=== PATIENT | male | born 1960 | race Caucasian/White ===

== ENCOUNTER 2025-04-26 22:55 | Inpatient (IN) | payer OTHER ==
[~2025-04-26] VITALS: Ht 177.8 cm; Wt 83.5 kg
[~2025-04-26 22:55] MED LIST: AMLO5 PO; Aspir 8181 MG PO; EPIPEN0.3 MG/0.3 IM; HYDROCHLOROTH12.5 MG PO; Isosorbide Mono30 MG PO; METO50ER PO; OMEP20ER PO; PRAZ2 PO; ZESTRIL40 M2 PO
[2025-04-26 23:36] LABS: BASOPHILS ABSOLUTE AUTO 0.08 K/mm3 (0.00-0.23); BASOPHILS PERCENT AUTO 1 % (0-2); EOSINOPHILS ABSOLUTE AUTO 0.21 K/mm3 (0.00-0.68); EOSINOPHILS PERCENT AUTO 2 % (0-6); Hematocrit 37.9 % (37.0-53.0); Hemoglobin 12.8 g/dL (13.5-17.5); IMMATURE GRAN ABSOLUTE AUTO 0.06 K/mm3 (0.00-0.10); IMMATURE GRAN PERCENT AUTO 1 % (0-1); LYMPHOCYTES ABSOLUTE AUTO 3.34 K/mm3 (0.84-5.20); LYMPHOCYTES PERCENT AUTO 37 % (21-46); MONOCYTES ABSOLUTE AUTO 0.77 K/mm3 (0.16-1.47); MONOCYTES PERCENT AUTO 8 % (4-13); Mean Corpuscular HGB Conc 33.8 g/dL (31.5-36.5); Mean Corpuscular Volume 88 fL (80-100); NEUTROPHILS ABSOLUTE AUTO 4.69 K/mm3 (1.96-9.15); NEUTROPHILS PERCENT AUTO 51 % (41-73); NRBC ABSOLUTE 0.00 K/mm3 (0.00-0.02); NRBC Auto 0.0 /100 WBC (0.0-0.2); Platelet Count 238 K/mm3 (150-400); RDW Coefficient Variation 12.2 % (11.7-14.2); RDW Standard Deviation 38.9 fL (35.1-46.3)
[2025-04-26 23:53] LABS: Alanine Aminotransfer (ALT/SGP 29.0 U/L (12-78); Albumin, Blood 3.4 g/dL (3.4-5.0); Albumin/Globulin Ratio 1.1 (0.8-1.8); Anion Gap 9.0 mmol/L (3-11); Aspartate Aminotrans (AST/SGOT 17.0 U/L (12-37); Bilirubin, Total 0.7 mg/dL (0.1-1.0); Blood Urea Nitrogen 13.0 mg/dL (8-24); CO2, Blood 27.0 mmol/L (21-32); Calcium, Blood 8.6 mg/dL (8.5-10.1); Chloride, Blood 105.0 mmol/L (98-108); Creatinine, Blood 1.03 mg/dL (0.60-1.20); Globulin, Blood 3.2 g/dL (2.2-4.0); Glucose, Blood 148.0 mg/dL (70-99); Potassium, Blood 4.0 mmol/L (3.5-5.5); Sodium, Blood 137.0 mmol/L (136-145); Total Protein, Blood 6.6 g/dL (6.4-8.2)
[2025-04-27] VITALS (36 sets, daily range): BP systolic 103–159; BP diastolic 54–77
[2025-04-27 00:59] LABS: Prothrombin Time Results 11.0 Sec (9.7-11.5)
[2025-04-27] MEDS ORDERED: NITR.4SL SL (01:10)
[2025-04-27] MEDS ORDERED: Ondansetron HCl 2 MG / ML 2ML Vial IV PRN ×2 (01:50→16:10)
[2025-04-27 02:46] LABS: Hematocrit 32.4 % (37.0-53.0); Hemoglobin 11.2 g/dL (13.5-17.5)
[2025-04-27] MEDS ORDERED: NS 1,000 ML IV SCH (03:50)
[2025-04-27] MEDS ORDERED: Ondansetron HCl 2 MG / ML 2ML Vial IV ONE (03:50)
--- NOTE | 2025-04-27 04:25 | NUR ---
SHIFT SUMMARY: PATIENT ARRIVED FROM ER EARLIER THIS MORNING AROUND 0300. PATIENT IS A&OX4. PATIENT REPORTS DIZZINESS/LIGHTHEADEDNESS WHEN AMBULATING OR REPOSITIONING IN BED. PRESSURE SUPERVISOR REPORTED HE IS SINUS MARIANNA AT 50 BPM. OTHER VITALS ARE STABLE AND IS ON ROOM AIR WITH >90% SPO2. PATIENT HAS BEEN REPORTING NAUSEA WHICH HAS BEEN MANAGED AT THIS TIME WITH X2 DOSES OF IV ZOFRAN. PATIENT IS A 2 PERSON ASSIST TO THE BSC. PATIENT HAD A BRIGHT RED OUTPUT WHEN ASSISTED TO THE BSC. MD AWARE AND PLACED ORDERS FOR IV FLUID OF NS RUNNING AT 75ML/HR. PATIENT IS CURRENTLY LAYING IN BED WITH CALL LIGHT IN REACH. IS ALSO AT BEDSIDE WITH PATIENT.
[2025-04-27] MEDS ORDERED: Metoclopramide HCl 5MG / ML 2ML Vial IV PRN (04:40)
[2025-04-27] MEDS ORDERED: Peg/Electrolytes 4,000 ML BTL PO STA (07:24)
[2025-04-27 08:45] LABS: Hematocrit 32.1 % (37.0-53.0); Hemoglobin 10.8 g/dL (13.5-17.5)
[2025-04-27 08:46] LABS: BASOPHILS ABSOLUTE AUTO 0.05 K/mm3 (0.00-0.23); BASOPHILS PERCENT AUTO 0 % (0-2); EOSINOPHILS ABSOLUTE AUTO 0.03 K/mm3 (0.00-0.68); EOSINOPHILS PERCENT AUTO 0 % (0-6); Hematocrit 31.7 % (37.0-53.0); Hemoglobin 10.8 g/dL (13.5-17.5); IMMATURE GRAN ABSOLUTE AUTO 0.09 K/mm3 (0.00-0.10); IMMATURE GRAN PERCENT AUTO 1 % (0-1); LYMPHOCYTES ABSOLUTE AUTO 2.14 K/mm3 (0.84-5.20); LYMPHOCYTES PERCENT AUTO 19 % (21-46); MONOCYTES ABSOLUTE AUTO 0.66 K/mm3 (0.16-1.47); MONOCYTES PERCENT AUTO 6 % (4-13); Mean Corpuscular HGB Conc 34.1 g/dL (31.5-36.5); Mean Corpuscular Volume 89 fL (80-100); NEUTROPHILS ABSOLUTE AUTO 8.56 K/mm3 (1.96-9.15); NEUTROPHILS PERCENT AUTO 74 % (41-73); NRBC ABSOLUTE 0.00 K/mm3 (0.00-0.02); NRBC Auto 0.0 /100 WBC (0.0-0.2); Platelet Count 226 K/mm3 (150-400); RDW Coefficient Variation 12.3 % (11.7-14.2); RDW Standard Deviation 39.6 fL (35.1-46.3)
[2025-04-27] MEDS ORDERED: Isosorbide Mononitrate 30 MG TABCR PO SCH (09:00)
[2025-04-27 09:08] LABS: Alanine Aminotransfer (ALT/SGP 25.0 U/L (12-78); Albumin, Blood 3.1 g/dL (3.4-5.0); Albumin/Globulin Ratio 1.1 (0.8-1.8); Anion Gap 8.0 mmol/L (3-11); Aspartate Aminotrans (AST/SGOT 15.0 U/L (12-37); Bilirubin, Total 0.7 mg/dL (0.1-1.0); Blood Urea Nitrogen 15.0 mg/dL (8-24); CO2, Blood 27.0 mmol/L (21-32); Calcium, Blood 8.4 mg/dL (8.5-10.1); Chloride, Blood 107.0 mmol/L (98-108); Creatinine, Blood 1.05 mg/dL (0.60-1.20); Globulin, Blood 2.9 g/dL (2.2-4.0); Glucose, Blood 112.0 mg/dL (70-99); Potassium, Blood 3.9 mmol/L (3.5-5.5); Sodium, Blood 138.0 mmol/L (136-145); Total Protein, Blood 6.0 g/dL (6.4-8.2)
[2025-04-27] MEDS ORDERED: Midazolam HCl 1MG / ML 2ML Vial ONE (12:19)
--- NOTE | 2025-04-27 13:35 | NUR ---
OUT OF ROOM NOTE: PATIENT LEFT THE ROOM AT 1320'S TO DAY SURGERY.
--- NOTE | 2025-04-27 13:52 | NUR ---
INTO SDS VIA W/C. PT IS 10 DAYS POST COLONOSCOPY W/BRB SINCE LAST NIGHT. Pre-Op teaching done. Pt verbalizes understanding. Patient confirms NPO status and agrees with scheduled surgery. History, Chart, Medications and Allergies reviewed before start of procedure.
--- NOTE | 2025-04-27 14:00 | NUR ---
04/27/25 Mariely Ocampo CONFIRMED AND REVIEWED H&P, MEDCICATIONS, ALLERGIES, MEDICAL HISTORY, RESPIRATORY HISTORY, VITAL SIGNS, 3-LEAD EKG, CONSENTS, AND PHYSICIAN ORDERS. PATIENT CONFIRMS NPO STATUS AND AGREES WITH SCHEDULED PROCEDURE. MONITOR INTACT WITH CONTINUOUS PULSE OXIMETRY, CAPNOGRAPHY, 3-LEAD EKG, INTERMITTENT BP. SUPPLEMENTAL O2 TO BE TITRATED THROUGHOUT PROCEDURE TO MAINTAIN O2 SATURATION ABOVE 90%. PATIENT DETERMINED TO BE ASA APPROPRIATE FOR PROPOFOL SEDATION PRIOR TO START OF PROCEDURE BY .MALLAMPATI CLASS 1 AIRWAY: COMPLETE VISULATIZATION OF THE SOFT PALATE.SMSA CRANE ACQUISITION SCOPE USED:[id number].
--- NOTE | 2025-04-27 14:40 | NUR ---
PT INTO STEP. S/P COLONOSCOPY. PT FOUND TO HAVE BLEEDING APPENDIX. PT IS AWAKE AND ALERT-INFORMED CONSENT OBTAINED BY DR. CARVAJAL. PT SPOUSE AT BEDSIDE WELL. VS WDL. LUNGS CLEAR.REMAINS NPO. BETTY HASTINGS RN, ILSA LARES, RN AT BEDSIDE PREPPING PT FOR OR.
[2025-04-27] MEDS ORDERED: Ampicillin Sod/Sulbactam Sod 3 GM in NS 100 ML IV SCH (15:00)
[2025-04-27] MEDS ORDERED: Bupivacaine 0.5% W/EPI 1:200000 SDV 30 ML Vial ONE (15:14)
[2025-04-27] MEDS ORDERED: Sugammadex Sodium 200 MG/2ML SDV (100 MG/ML) ONE (15:16)
[2025-04-27] MEDS ORDERED: FentaNYL Citrate 50 MCG/ML 2 ML Injection ONE (15:16)
[2025-04-27] MEDS ORDERED: Ketorolac Tromethamine 30mg Vial ONE (15:17)
[2025-04-27] MEDS ORDERED: ePHEDrine Sulfate 50 MG/ML 1ML Injection ONE (15:44)
[2025-04-27] MEDS ORDERED: HYDROmorphone HCl/Pf 1MG SYR IV PRN ×2 (16:10→16:40)
[2025-04-27] MEDS ORDERED: FentaNYL Citrate 50 MCG/ML 2 ML Injection IV PRN (16:10)
[2025-04-27] MEDS ORDERED: Prochlorperazine Edisylate 10 mg Vial IV PRN (16:10)
[2025-04-27] MEDS ORDERED: Metoprolol Tartrate 5 ML IV ONE (16:15)
--- NOTE | 2025-04-27 17:28 | NUR ---
SHIFT SUMMARY: PATIENT A/OX4, PLEASANT AND COOPERATIVE c CARE. PATIENT DENIES CP/PRESSURE, SOB, AND DIZZINESS. PATIENT MEDICATED FOR NAUSEA PER EMAR c GOOD EFFECT. PATIENT ON TELE SB/SR HR IN THE MID 50'S TO 80'S BPM. PATIENT COMPLETED HIS BOWEL PREP AT 1200. PATIENT LEFT THE ROOM AT 1320 FOR COLONOSCOPY. PER KRYSTIAN FELICIANO THEY FOUND THE SOURCE OF BLEEDING (APPENDIX). PATIENT HAD COLONOSCOPY AND LAP APPY DONE BY DR. CARVAJAL (GENERAL SURGEON). PATIENT CAME BACK TO ROOM AT 1705 FROM PACU. PATIENT HAD 3 SMALL INCISION TO ABDOMEN. PATIENT INCISION SITE SKIN IS INTACT c NO DRAINAIGE NOTED. PATIENT POST-OP VITALS TAKEN. PATIENT ON REGULAR DIET FOR DINNER. PATIENT SPOUSE AT BEDSIDE. CALL LIGHT IN REACH.
[2025-04-27 21:06] LABS: Hematocrit 30.4 % (37.0-53.0); Hemoglobin 10.4 g/dL (13.5-17.5)
[2025-04-28 00:32] VITALS: BP 113/58
[2025-04-28 02:37] LABS: BASOPHILS ABSOLUTE AUTO 0.02 K/mm3 (0.00-0.23); BASOPHILS PERCENT AUTO 0 % (0-2); EOSINOPHILS ABSOLUTE AUTO 0.00 K/mm3 (0.00-0.68); EOSINOPHILS PERCENT AUTO 0 % (0-6); Hematocrit 27.3 % (37.0-53.0); Hemoglobin 9.5 g/dL (13.5-17.5); IMMATURE GRAN ABSOLUTE AUTO 0.06 K/mm3 (0.00-0.10); IMMATURE GRAN PERCENT AUTO 1 % (0-1); LYMPHOCYTES ABSOLUTE AUTO 1.12 K/mm3 (0.84-5.20); LYMPHOCYTES PERCENT AUTO 9 % (21-46); MONOCYTES ABSOLUTE AUTO 0.30 K/mm3 (0.16-1.47); MONOCYTES PERCENT AUTO 2 % (4-13); Mean Corpuscular HGB Conc 34.8 g/dL (31.5-36.5); Mean Corpuscular Volume 87 fL (80-100); NEUTROPHILS ABSOLUTE AUTO 10.99 K/mm3 (1.96-9.15); NEUTROPHILS PERCENT AUTO 88 % (41-73); NRBC ABSOLUTE 0.00 K/mm3 (0.00-0.02); NRBC Auto 0.0 /100 WBC (0.0-0.2); Platelet Count 202 K/mm3 (150-400); RDW Coefficient Variation 12.4 % (11.7-14.2); RDW Standard Deviation 39.4 fL (35.1-46.3)
[2025-04-28 02:52] LABS: Anion Gap 10.0 mmol/L (3-11); Blood Urea Nitrogen 11.0 mg/dL (8-24); CO2, Blood 26.0 mmol/L (21-32); Calcium, Blood 8.2 mg/dL (8.5-10.1); Chloride, Blood 106.0 mmol/L (98-108); Creatinine, Blood 1.04 mg/dL (0.60-1.20); Glucose, Blood 188.0 mg/dL (70-99); Potassium, Blood 3.5 mmol/L (3.5-5.5); Sodium, Blood 138.0 mmol/L (136-145)
--- NOTE | 2025-04-28 03:23 | NUR ---
SHIFT SUMMARY POD 0. PT RESTING WITHOUT ACUTE DISTRESS. PT DENIES A NEED FOR AN ANALGESIC T/O THIS SHIFT. AFEBRILE. HELD HS METOPROLOL. RLQ AND MID ABDOMEN INSICIONS MITUL. NO REDNESS/INFLAMMATION NOTED. TELE: SR @86. PT DENIES CP/PRESSURE, SOB, N/V OR DISCOMFORT. BED AT THE LOWEST POSITION, CALL LIGHT W/I REACH. PT IS A/O X4, ABLE TO MAKE HIS NEEDS KNOWN AND COOPERATIVE WITH CARE, PLEASANT. @HS YEYO BY THE BEDSIDE. HGB 9.5 @0300.
[2025-04-28 04:59] VITALS: BP 134/63
[2025-04-28 07:24] VITALS: BP 131/67
[2025-04-28 09:04] VITALS: BP 142/65
[2025-04-28 09:06] LABS: Hematocrit 29.3 % (37.0-53.0); Hemoglobin 10.3 g/dL (13.5-17.5)
[2025-04-28 12:06] VITALS: BP 131/59
--- NOTE | 2025-04-28 14:37 | NUR ---
SHIFT/DISCHARGE SUMMARY: PATIENT HAD HIS LAP APPY/COLONOSCOPY DONE YESTERDAY BY DR. CARVAJAL. PATIENT HAS 3 SMALL INCISION SITE TO ABDOMEN APPEARS SKIN DRY AND INTACT c NO DRAINAIGE OR SWILLING NOTED TO SITE. PATIENT MEDICATED FOR INCISION SITE PAIN PER EMAR c GOOD EFFECT. PATIENT DENIES CP/PRESSURE, SOB, N/V AND DIZZINESS. PATIENT ON TELE, SR HR IN THE 90'S BPM. PATIENT RECEIVED SCHEDULED MEDS PER EMAR. VITAL SIGNS REVIEWED. PATIENT TOLERATING DIET WELL, CONTINENT OF BLADDERS AND AMBULATES TO BATHROOM INDEPENDENTLY. PATIENT HAS HAD NO COMPLAINTS OR DENIES NEW CONCERN THIS SHIFT. PIV DC'D. PATIENT DISCHARGE HOME. DISCHARGE INSTRUCTIONS PACKET GIVEN TO PATIENT. PATIENT AND SPOUSE EDUCATED ON ADMITITNG DX'S OF GI BLEED, S/S, TX, POST LAP APPY, SELF CARE AND TO F/U c PCP AND GENERAL SURGEON-DR. CARVAJAL. PATIENT AND SPOUSE VERBALIZED UNDERSTANDING AND NO FURTHER QUESTIONS. PATIENT HAS HAD NO NEW RX ORDERED. PATIENT LEFT THE ROOM AT 1305, TRANSPORTED VIA WC TO PATIENT ENTRANCE BY LIA ENCINAS.
== END 2025-04-28 13:21 | disposition home or self-care (01) | DRG 398 ==
LOC: ER 22:55 → MEDS 22:56 → ERHOLD 22:56 → MEDS 04-27 02:53
PROVIDERS: Emergency Medicine; Internal Medicine; Surgery; ADMIT Internal Medicine
PROC: 3E03329 Introduction of Other Anti-infective into Peripheral Vein, Percutaneous Approach (ICD-10-PCS; 2025-04-27)
PROC: 0DBL8ZX Excision of Transverse Colon, Via Natural or Artificial Opening Endoscopic, Diagnostic (ICD-10-PCS; 2025-04-27)
PROC: 0DTJ4ZZ Resection of Appendix, Percutaneous Endoscopic Approach (ICD-10-PCS; principal; 2025-04-27 13:00)
DX: K38.8 Other specified diseases of appendix (principal); K92.2 Gastrointestinal hemorrhage, unspecified; I10 Essential (primary) hypertension; K21.9 Gastro-esophageal reflux disease without esophagitis; R73.9 Hyperglycemia, unspecified; D12.3 Benign neoplasm of transverse colon; I25.10 Atherosclerotic heart disease of native coronary artery without angina pectoris; K57.30 Diverticulosis of large intestine without perforation or abscess without bleeding; Z88.5 Allergy status to narcotic agent; Z91.030 Bee allergy status; Z79.82 Long term (current) use of aspirin; Z79.899 Other long term (current) drug therapy
CPT/HCPCS: 36415; 74177; 80048; 80053; 82947; 83605; 83880; 85014; 85018; 85025; 85610; 85730; 86850; 86900; 86901; 93005; 93010; 96361; 96374; 96375; 96376; 99285-25; A9270; G0378; J0295; J1885; J2250; J2405; J2704; J2765; J3010; J7030; J7120; Q9967